=== PATIENT | male | born 1975 | race Caucasian/White ===

== ENCOUNTER 2021-02-07 14:09 | Emergency (ER) | payer OTHER ==
[2021-02-07] MEDS ORDERED: CILOXAN 0.3% O2.5 ML OU (17:19)
== END 2021-02-07 17:50 | disposition home or self-care (01) ==
LOC: ER1 14:09
DX: T15.02XA Foreign body in cornea, left eye, initial encounter (principal); F17.200 Nicotine dependence, unspecified, uncomplicated
CPT/HCPCS: 99283

== ENCOUNTER 2021-09-21 13:35 | Emergency (ER) | payer OTHER ==
[~2021-09-21 13:35] MED LIST: CILOXAN 0.3% O2.5 ML OU
[2021-09-21] MEDS ORDERED: PERCOCET 5/325 T1 EA PO (16:27)
== END 2021-09-21 16:41 | disposition home or self-care (01) ==
LOC: ER1 13:35
DX: S82.832A Other fracture of upper and lower end of left fibula, initial encounter for closed fracture (principal); W19.XXXA Unspecified fall, initial encounter; Y92.009 Unspecified place in unspecified non-institutional (private) residence as the place of occurrence of the external cause
CPT/HCPCS: 29515; 73610; 99283